=== PATIENT | female | born 1975 | race Two or more races ===

== ENCOUNTER → 2021-07-19 | Outpatient (CLI) | payer OTHER ==
[~2021-07-19] MED LIST: ALBIPROI INH; ALBU8HFA2 INH; ALBU90OI61 INH; AMOX500 PO; BENZ100A PO; CEPH500 PO; ESOM20 PO; FLUSAL2505 IH; FLUSAL5005 IH; HYDPAM50 PO; IBUP600 PO; INHALERS; METO10 PO; OMEP20ER PO; OXYACE5T PO; PARO30 PO; PRED20 PO; PROM25 PO; PSEU120ER PO; QUET300 PO; RXONDA4ODT MM; RXOXYACE PO; TRAM50 PO; WARF3 PO; WARF5 PO
[2021-07-19 14:45] LABS: Performing Lab PROMETHEUS; Test Name FIRBOSURE
[2021-07-29 12:25] LABS: Result SEE SEPERATE REPORT
== END | disposition home or self-care (01) ==
LOC: LAB 14:42 → LAB SHORT 14:42
PROVIDERS: Internal Medicine Infectious Disease
DX: B18.2 Chronic viral hepatitis C (principal)
CPT/HCPCS: 36415

== ENCOUNTER 2022-05-30 19:06 | Emergency (ER) | payer OTHER ==
[~2022-05-30] VITALS: Ht 162.6 cm; Wt 81.7 kg
[2022-05-30] MEDS ORDERED: Robaxin750 MG PO (19:58)
== END 2022-05-30 20:06 | disposition home or self-care (01) ==
LOC: ER 19:06
DX: M25.511 Pain in right shoulder (principal); J45.909 Unspecified asthma, uncomplicated; K21.9 Gastro-esophageal reflux disease without esophagitis; F17.200 Nicotine dependence, unspecified, uncomplicated; Z86.718 Personal history of other venous thrombosis and embolism; Z79.01 Long term (current) use of anticoagulants; Z79.899 Other long term (current) drug therapy
CPT/HCPCS: 99283; A9270

== ENCOUNTER 2023-02-26 08:41 | Day surgery (SDC) | payer OTHER ==
[~2023-02-26] VITALS: Ht 162.6 cm; Wt 97.0 kg
[~2023-02-26 08:41] MED LIST changes: +FAMO20 PO; +Robaxin750 MG PO
--- NOTE | 2023-02-26 09:59 | NUR ---
History, Chart, Medications and Allergies reviewed before start of procedure. Patient States Post-Procedure ride home has been arranged. Patient confirms NPO status and agrees with scheduled EGD.
== END 2023-02-26 22:41 | disposition home or self-care (01) ==
LOC: ORSCMMR 08:41 → ORD 09:30 → ORSCMMR 09:30
PROVIDERS: Internal Medicine Gastroenterology
PROC: 0DB48ZX Excision of Esophagogastric Junction, Via Natural or Artificial Opening Endoscopic, Diagnostic (ICD-10-PCS; principal; 2023-02-26 09:30)
PROC: 0DB68ZX Excision of Stomach, Via Natural or Artificial Opening Endoscopic, Diagnostic (ICD-10-PCS; principal; 2023-02-26 09:30)
PROC: 0DB58ZX Excision of Esophagus, Via Natural or Artificial Opening Endoscopic, Diagnostic (ICD-10-PCS; principal; 2023-02-26 09:30)
DX: K21.9 Gastro-esophageal reflux disease without esophagitis (principal); B96.81 Helicobacter pylori [H. pylori] as the cause of diseases classified elsewhere; J45.909 Unspecified asthma, uncomplicated; Z79.899 Other long term (current) drug therapy
CPT/HCPCS: 88305; 88342; A9270; J2250; J2704; J7120

== ENCOUNTER → 2023-06-21 | Outpatient (CLI) | payer OTHER | END | disposition home or self-care (01) | LOC: LAB 09:40 → LAB SHORT 09:40 | DX: R10.13 Epigastric pain (principal) | CPT/HCPCS: 87338 ==

== ENCOUNTER → 2024-12-31 | Outpatient (CLI) | payer OTHER ==
[2025-01-10 08:17] LABS: HPV GENOTYPE 16 BY TMA Not Detected; HPV GENOTYPE 18/45 BY TMA Detected; HPV HIGH RISK BY TMA Detected; HPV SOURCE Cervical; HPVG SOURCE Cervical
== END | disposition home or self-care (01) ==
LOC: LAB SHORT 17:14 → LAB 17:14 → EDBD 17:14
DX: C53.9 Malignant neoplasm of cervix uteri, unspecified (principal); N88.8 Other specified noninflammatory disorders of cervix uteri
CPT/HCPCS: 87624; 87625; 88305; 88342; G0123

== ENCOUNTER → 2025-09-01 | Outpatient (CLI) | payer OTHER ==
[2025-09-01 13:26] LABS: Alanine Aminotransfer (ALT/SGP 19.0 U/L (12-78); Albumin, Blood 3.0 g/dL (3.4-5.0); Albumin/Globulin Ratio 0.7 (0.8-1.8); Anion Gap 9.0 mmol/L (3-11); Aspartate Aminotrans (AST/SGOT 48.0 U/L (12-37); Bilirubin, Total 0.5 mg/dL (0.1-1.0); Blood Urea Nitrogen 7.0 mg/dL (8-24); CO2, Blood 23.0 mmol/L (21-32); Calcium, Blood 8.9 mg/dL (8.5-10.1); Chloride, Blood 108.0 mmol/L (98-108); Creatinine, Blood 0.53 mg/dL (0.40-1.00); Globulin, Blood 4.5 g/dL (2.2-4.0); Glucose, Blood 101.0 mg/dL (70-99); Potassium, Blood 4.1 mmol/L (3.5-5.5); Sodium, Blood 136.0 mmol/L (136-145); Total Protein, Blood 7.5 g/dL (6.4-8.2)
== END ==
LOC: LAB 12:45 → LAB SHORT 12:45
PROVIDERS: Internal Medicine Hematology & Oncology
DX: D50.9 Iron deficiency anemia, unspecified (principal); C20 Malignant neoplasm of rectum; C53.9 Malignant neoplasm of cervix uteri, unspecified
CPT/HCPCS: 80053

== ENCOUNTER → 2025-09-02 | Outpatient (CLI) | payer OTHER ==
[2025-09-02 12:25] LABS: Bilirubin, Urine Neg (Neg); Color, Urine Yellow (P-Yellow); Glucose Qualitative, Urine Neg (Neg); Ketones, Urine Neg (Neg); Leukocyte Esterase, Urine 3+ (Neg); Protein, Urine Neg (Neg); Specific Gravity, Urine 1.005 (1.003-1.022); Urobilinogen, Urine NORM (Normal)
[2025-09-02 12:31] LABS: White Blood Cells, Urine 25-50 /hpf (0-5)
== END | disposition home or self-care (01) ==
LOC: LAB 12:17 → LAB SHORT 12:17
PROVIDERS: Surgery
DX: C53.8 Malignant neoplasm of overlapping sites of cervix uteri (principal); C20 Malignant neoplasm of rectum
CPT/HCPCS: 81001; 87086